=== PATIENT | female | born 1995 | race African-American/Black ===

== ENCOUNTER 2017-07-10 21:59 | Emergency (ER) | payer BC ==
--- NOTE | 2017-07-10 22:23 | ER Document Report ---
ED Medical Screen (RME) - General Chief Complaint: Abdominal Pain Stated Complaint: ABDOMINAL PAIN,DIARRHEA Time Seen by Provider: 07/10/17 22:18 Notes: 22-year-old female, chief complaint of lower abdominal cramping for a few days, vaginal discharge and odor, and some loose stools which are nonbloody. Denies nausea or vomiting, fever or chills, LMP within the past month. She reports she has been treated for chlamydia in the past. TRAVEL OUTSIDE OF THE [place] IN LAST 30 DAYS: No - Related Data Allergies/Adverse Reactions: metaxalone [From Skelaxin] Allergy (Verified 07/10/17 22:08) naproxen Allergy (Verified 07/10/17 22:08) Penicillins Allergy (Verified 07/10/17 22:08) trazodone Allergy (Verified 07/10/17 22:08) Past Medical History Renal/ Medical History: Denies: Hx Peritoneal Dialysis Past Surgical History: Reports: Hx Orthopedic Surgery - right knee - Immunizations Immunizations up to date: Yes Physical Exam - Vital signs Vitals: Temp Pulse Resp BP Pulse Ox 98.6 F 89 18 117/64 99 07/10/17 22:08 07/10/17 22:08 07/10/17 22:08 07/10/17 22:08 07/10/17 22:08 - General General appearance: Appears well In distress: None - Abdominal Tenderness: Nontender. No: Tender - Exam limited by sitting position, Guarding - Back Back: No: Tender, CVA tenderness Course - Vital Signs Vital signs: Temp Pulse Resp BP Pulse Ox 98.6 F 89 18 117/64 99 07/10/17 22:08 07/10/17 22:08 07/10/17 22:08 07/10/17 22:08 07/10/17 22:08
[2017-07-10 22:42] LABS: APPEARANCE,URINE CLOUDY; BILIRUBIN,URINE NEGATIVE (NEGATIVE); GLUCOSE, URINE 50 mg/dL (NEGATIVE); KETONES,URINE NEGATIVE (NEGATIVE); LEUKOCYTE ESTERASE,URINE NEGATIVE (NEGATIVE); NITRITE,URINE NEGATIVE (NEGATIVE); PROTEIN,URINE >=500 mg/dL (NEGATIVE); URINE SPECIFIC GRAVITY 1.018
[2017-07-11 00:42] LABS: ABSOLUTE LYMPHOCYTES (AUTO) 3.2 10^3/uL (0.5-4.7); ABSOLUTE MONOCYTES (AUTO) 0.2 10^3/uL (0.1-1.4); ABSOLUTE NEUT (AUTO) 2.3 10^3/uL (1.7-8.2); BASOPHILS % (AUTO) 0.5 % (0-2); EOSINOPHILS % (AUTO) 0.8 % (0-6); HEMATOCRIT 37.2 % (36.0-47.0); HEMOGLOBIN 13.1 g/dL (12.0-15.5); HGB HCT DIFFERENCE 2.1; LYMPHOCYTES % (AUTO) 55.6 % (13-45); MEAN CORPUSCULAR HGB CONC 35.3 g/dL (32.0-36.0); MEAN CORPUSCULAR VOLUME 79 fl (80-97); MONOCYTES % (AUTO) 3.3 % (3-13); RED BLOOD COUNT 4.69 10^6/uL (3.72-5.28); RED CELL DISTRIBUTION WIDTH 13.8 % (11.5-14.0); SEGMENTED NEUTROPHILS % (AUTO) 39.8 % (42-78); WHITE BLOOD COUNT 5.7 10^3/uL (4.0-10.5)
[2017-07-11 00:54] LABS: ALANINE AMINOTRANSFERASE 15 U/L (9-52); ALBUMIN 4.3 g/dL (3.5-5.0); ALKALINE PHOSPHATASE 46 U/L (38-126); ANION GAP 11 (5-19); ASPARTATE AMINO TRANSFERASE 19 U/L (14-36); BILIRUBIN,DIRECT 0.3 mg/dL (0.0-0.4); BILIRUBIN,TOTAL 0.8 mg/dL (0.2-1.3); BLOOD UREA NITROGEN 13 mg/dL (7-20); CALCIUM 9.9 mg/dL (8.4-10.2); CARBON DIOXIDE 26 mmol/L (22-30); CHLORIDE 107 mmol/L (98-107); CREATININE RESULT 0.79 mg/dL (0.52-1.25); GLUCOSE 108 mg/dL (75-110); POTASSIUM 3.7 mmol/L (3.6-5.0); SODIUM 143.6 mmol/L (137-145)
[2017-07-11] MEDS ORDERED: SULFAMETHOXAZOLE/TRIMETHOPRIM 800-160 MG TABLET PO ONE (01:06)
--- NOTE | 2017-07-11 01:09 | ER Document Report ---
ED GI/ - General Chief Complaint: Abdominal Pain Stated Complaint: ABDOMINAL PAIN,DIARRHEA Time Seen by Provider: 07/10/17 22:18 Notes: Patient is a 22-year-old female, chief complaint of lower abdominal cramping for a few days, vaginal discharge and odor, and some loose stools which are nonbloody. Denies nausea or vomiting, fever or chills, LMP within the past month. She reports she has been treated for chlamydia in the past. She uses condoms now. TRAVEL OUTSIDE OF THE [place] IN LAST 30 DAYS: No - Related Data Allergies/Adverse Reactions: metaxalone [From Skelaxin] Allergy (Verified 07/10/17 22:08) naproxen Allergy (Verified 07/10/17 22:08) Penicillins Allergy (Verified 07/10/17 22:08) trazodone Allergy (Verified 07/10/17 22:08) Past Medical History - General Information source: Patient - Social History Smoking Status: Never Smoker Frequency of alcohol use: None Drug Abuse: None Lives with: Family Family History: Reviewed & Not Pertinent Patient has suicidal ideation: No Patient has homicidal ideation: No Pulmonary Medical History: Reports: Hx Asthma Renal/ Medical History: Denies: Hx Peritoneal Dialysis GI Medical History: Reports: Hx Gastroesophageal Reflux Disease Past Surgical History: Reports: Hx Orthopedic Surgery - right knee - Immunizations Immunizations up to date: Yes Review of Systems - Review of Systems Constitutional: No symptoms reported EENT: No symptoms reported Cardiovascular: No symptoms reported Respiratory: No symptoms reported Gastrointestinal: See HPI Genitourinary: See HPI Female Genitourinary: See HPI Musculoskeletal: No symptoms reported Skin: No symptoms reported Hematologic/Lymphatic: No symptoms reported Neurological/Psychological: No symptoms reported Physical Exam - Vital signs Vitals: Temp Pulse Resp BP Pulse Ox 98.6 F 89 18 117/64 99 07/10/17 22:08 07/10/17 22:08 07/10/17 22:08 07/10/17 22:08 07/10/17 22:08 Interpretation: Normal - General General appearance: Appears well, Alert In distress: None - HEENT Head: Normocephalic, Atraumatic Eyes: Normal Conjunctiva: Normal Extraocular movements intact: Yes Eyelashes: Normal Pupils: PERRL Sinus: Normal Nasal: Normal Mouth/Lips: Normal Mucous membranes: Normal Pharynx: Normal Neck: Normal - Respiratory Respiratory status: No respiratory distress Chest status: Nontender Breath sounds: Normal Chest palpation: Normal - Cardiovascular Rhythm: Regular. No: Tachycardia Heart sounds: Normal auscultation. No: S1 appreciated, S2 appreciated Murmur: No - Abdominal Inspection: Normal Distension: No distension Bowel sounds: Normal Tenderness: Tender - Minimal suprapubic tenderness, otherwise very soft benign abdomen Organomegaly: No organomegaly - Genitourinary External exam: Normal Speculum exam: Normal, Cervix closed. No: Cervix open, Vaginal discharge Vaginal bleeding: None Bimanuel exam: Normal Notes: ANNABELLE Vallejo present during examination - Back Back: Normal, Nontender. No: Tender, CVA tenderness - Extremities General upper extremity: Normal inspection, Nontender, Normal color, Normal ROM , Normal temperature General lower extremity: Normal inspection, Nontender, Normal color, Normal ROM , Normal temperature, Normal weight bearing. No: Tammy's sign - Neurological Neuro grossly intact: Yes Cognition: Normal Orientation: AAOx4 [place] Coma Scale Eye Opening: Spontaneous [place] Coma Scale Verbal: Oriented Michael Coma Scale Motor: Obeys Commands Michael Coma Scale Total: 15 Speech: Normal Motor strength normal: LUE, RUE, LLE, RLE Sensory: Normal - Psychological Associated symptoms: Normal affect, Normal mood - Skin Skin Temperature: Warm Skin Moisture: Dry Skin Color: Normal Course - Re-evaluation Re-evalutation: Urinalysis has bacteria, white blood cells, suggestive of urinary tract infection with patient suprapubic cramping noted on exam. Pelvic examination is completely unremarkable. Because of protein and glucose in the urine, blood tests were ordered, however these are unremarkable, there is no leukocytosis, acidosis, hyperglycemia, or abnormal kidney functioning. Patient is not hypertensive, she has no peripheral edema. Nonspecific finding. I did discuss it with patient, she states she will follow-up with it with primary care. Patient will be given Bactrim for UTI, urine culture placed. Discussed return precautions, patient states understanding and agreement. - Vital Signs Vital signs: Temp Pulse Resp BP Pulse Ox 98.4 F 62 16 111/69 100 07/11/17 01:35 07/11/17 01:35 07/11/17 01:35 07/11/17 01:35 07/11/17 01:35 - Laboratory Result Diagrams: 07/11/17 00:29 07/11/17 00:29 Laboratory results interpreted by me: 07/10/17 07/11/17 22:29 00:29 MCV 79 L Seg Neutrophils % 39.8 L Lymphocytes % 55.6 H Urine Protein >=500 H Urine Glucose (UA) 50 H Urine Blood SMALL H Urine Urobilinogen 2.0 H Discharge - Discharge Clinical Impression: Lower abdominal pain Condition: Stable Disposition: HOME, SELF-CARE Additional Instructions: Take Bactrim as directed for urinary tract infection. Remaining workup shows no concerning findings. Follow up with primary care. Return to the ED for any concerning or worsening symptoms - fever, vomiting, increased abdominal pain, etc. Prescriptions: Sulfamethoxazole/Trimethoprim [Bactrim Ds Tablet] 1 each PO BID #10 tablet Forms: Return to Work Referrals: [facility] [Provider Group] - Follow up as needed
[2017-07-11 01:39] VITALS: BP 111/69
[2017-07-11 02:21] LABS: CHLAM PCR NOT DETECTED (NOT DETECT)
== END 2017-07-11 01:38 | disposition home or self-care (01) ==
LOC: ER 21:59
DX: R10.30 Lower abdominal pain, unspecified (principal); R10.9 Unspecified abdominal pain; R19.7 Diarrhea, unspecified; N89.8 Other specified noninflammatory disorders of vagina
CPT/HCPCS: 36415; 80053; 81001; 81025; 85025; 87086; 87088; 87210; 87491; 87591; 99284